=== PATIENT | female | born 1985 | race Caucasian/White ===

== ENCOUNTER → 2017-03-19 | Outpatient (CLI) | payer OTHER ==
[2017-03-19 20:58] LABS: FREE T4 0.97 NG/DL (0.76-1.46)
[2017-03-19 21:18] LABS: THYROID PEROXIDASE ANTIBODY 113.6 U/ML (<60.0)
== END ==
LOC: M LRY 15:37
PROVIDERS: ATTEND Nurse Practitioner Pediatrics
DX: E06.3 Autoimmune thyroiditis (principal); F34.1 Dysthymic disorder

== ENCOUNTER → 2017-12-31 | Outpatient (CLI) | payer OTHER ==
[2017-12-31 17:57] LABS: TOTAL 25(OH) VITAMIN D 28.8 NG/ML (30.0-100.0)
[2017-12-31 17:57] LABS: PROGESTERONE 0.4 NG/ML
[2017-12-31 17:58] LABS: LUTEINIZING HORMONE 15.8 mIU/mL; THYROGLOBULIN ANTIBODY 33.6 U/ML (<60.0); THYROID PEROXIDASE ANTIBODY 109.4 U/ML (<60.0)
[2017-12-31 17:59] LABS: FOLLICLE STIMULATING HORMONE 4.3 mIU/mL
[2017-12-31 18:03] LABS: FREE T3 2.1 PG/ML (2.2-4.0); FREE T4 0.79 NG/DL (0.76-1.46)
== END ==
LOC: M WUC 12:49
DX: E06.3 Autoimmune thyroiditis (principal); F34.1 Dysthymic disorder

== ENCOUNTER → 2018-04-06 | Outpatient (CLI) | payer OTHER ==
[2018-04-06 18:33] LABS: FREE T4 1.27 NG/DL (0.76-1.46)
[2018-04-06 18:33] LABS: FREE T3 2.8 PG/ML (2.2-4.0)
[2018-04-08 10:59] LABS: TOTAL 25(OH) VITAMIN D 45.6 NG/ML (30.0-100.0)
[2018-04-08 11:00] LABS: THYROGLOBULIN ANTIBODY 50.5 U/ML (<60.0); THYROID PEROXIDASE ANTIBODY 65.5 U/ML (<60.0)
[2018-04-08 11:06] LABS: LUTEINIZING HORMONE 30.1 mIU/mL
[2018-04-08 11:07] LABS: FOLLICLE STIMULATING HORMONE 5.8 mIU/mL
[2018-04-12 14:17] LABS: T3 REVERSE 33.1 ng/dL (9.2-24.1)
[2018-04-12 14:17] LABS: INSULIN LEVEL 5.8 uIU/mL (2.6-24.9); TESTOSTERONE FREE (DIRECT) 0.6 pg/mL (0.0-4.2)
== END ==
LOC: M WUC 13:02
DX: F34.1 Dysthymic disorder (principal); E06.3 Autoimmune thyroiditis
CPT/HCPCS: 83001

== ENCOUNTER → 2018-05-22 | Outpatient (CLI) | payer OTHER ==
[2018-05-22 16:51] LABS: PROLACTIN 9.7 NG/ML
[2018-05-25 00:14] LABS: TESTOSTERONE FREE (DIRECT) 0.8 pg/mL (0.0-4.2)
== END ==
LOC: M RAD 15:03
DX: N92.6 Irregular menstruation, unspecified (principal)
CPT/HCPCS: 76856

== ENCOUNTER → 2018-12-25 | Outpatient (CLI) | payer OTHER ==
[2018-12-25 20:09] LABS: BASO % 0.3 % (0.0-1.0); EOS # 0.1 10^3/uL (0.0-0.50); EOS % 0.5 % (0.0-3.0); HEMATOCRIT 40.5 % (36.0-47.0); HEMOGLOBIN 13.5 g/dl (12.0-15.5); LYMPH # 2.8 10^3/uL (1.5-4.5); LYMPH % 22.5 % (24.0-44.0); MEAN CORPUSCULAR HEMOGLOBIN 29.7 pg (27.0-33.0); MEAN CORPUSCULAR HGB CONC 33.3 g/dl (32.0-36.5); MEAN CORPUSCULAR VOLUME 89.2 fl (80.0-96.0); MONO # 0.7 10^3/uL (0.0-0.8); MONO % 5.6 % (0.0-5.0); NEUTROPHILS # 8.6 10^3/uL (1.8-7.7); NEUTROPHILS % 70.5 % (36.0-66.0); PLATELET COUNT, AUTOMATED 265 10^3/uL (150-450); RED BLOOD COUNT 4.54 10^6/uL (4.00-5.40); WHITE BLOOD COUNT 12.2 10^3/uL (4.0-10.0)
[2018-12-25 20:15] LABS: HEMATOCRIT 40.5 % (36.0-47.0)
[2018-12-25 20:17] LABS: FREE T4 0.92 NG/DL (0.76-1.46); IRON (FE) 58 UG/DL (50-170); PERCENT SATURATION 14.1 % (13.2-45.0); RHEUMATOID FACTOR QUANT < 10.0 IU/ML (<15.0); TOTAL IRON BINDING CAPACITY 411 UG/DL (250-450)
[2018-12-25 20:18] LABS: THYROGLOBULIN ANTIBODY 25.5 U/ML (<60.0); TOTAL 25(OH) VITAMIN D 28.3 NG/ML (30.0-100.0)
[2018-12-25 20:19] LABS: TOTAL T3 124.6 NG/DL (60.0-181.0); VITAMIN B12 LEVEL 644 PG/ML (247-911)
[2018-12-25 20:20] LABS: FOLATE > 24.0 NG/ML (>5.4)
== END ==
LOC: M WUC 16:12
PROVIDERS: ATTEND Nurse Practitioner Pediatrics
DX: E06.3 Autoimmune thyroiditis (principal); F34.1 Dysthymic disorder

== ENCOUNTER → 2019-01-09 | Outpatient (CLI) | payer OTHER ==
--- NOTE | 2019-01-09 17:52 | REP ---
Clinical: Bronchitis . Comparison: 05/24/2013 . Technique: PA and lateral. Findings: The mediastinum and cardiac silhouette are normal. The lung spain are clear and without acute consolidation, effusion, or pneumothorax. The skeletal structures are intact and normal. Impression: 1. No acute cardiopulmonary process. Electronically Signed by Vance Iyer MD 01/09/2019 05:43 P
== END ==
LOC: M WUC 17:32
PROVIDERS: ATTEND Physician Assistant Medical
DX: J20.9 Acute bronchitis, unspecified (principal)

== ENCOUNTER → 2019-10-06 | Outpatient (CLI) | payer OTHER ==
[2019-10-06 16:48] LABS: HEMATOCRIT 38.9 % (36.0-47.0); HEMOGLOBIN 12.7 g/dl (12.0-15.5); MEAN CORPUSCULAR HEMOGLOBIN 29.2 pg (27.0-33.0); MEAN CORPUSCULAR HGB CONC 32.6 g/dl (32.0-36.5); MEAN CORPUSCULAR VOLUME 89.4 fl (80.0-96.0); PLATELET COUNT, AUTOMATED 209 10^3/uL (150-450); RED BLOOD COUNT 4.35 10^6/uL (4.00-5.40); WHITE BLOOD COUNT 7.9 10^3/uL (4.0-10.0)
[2019-10-06 17:00] LABS: ALBUMIN 3.1 GM/DL (3.2-5.2); ALT/SGPT 31 U/L (12-78); BILIRUBIN,TOTAL 0.5 MG/DL (0.2-1.0); BLOOD UREA NITROGEN 14 MG/DL (7-18); CALCIUM LEVEL 8.8 MG/DL (8.5-10.1); CARBON DIOXIDE LEVEL 24 MEQ/L (21-32); CHLORIDE LEVEL 105 MEQ/L (98-107); CREATININE FOR GFR 0.84 MG/DL (0.55-1.30); GLOMERULAR FILTRATION RATE > 60.0 (>60); GLUCOSE, FASTING 114 MG/DL (70-100); POTASSIUM SERUM 4.1 MEQ/L (3.5-5.1); SODIUM LEVEL 137 MEQ/L (136-145)
[2019-10-06 19:45] LABS: ATYPICAL LYMPH 2 % (0-5); BASOPHILS 1 % (0-1); LYMPHOCYTES 17 % (16-44); MONOCYTES 5 % (0-5); NEUTROPHILS 74 % (28-66); PLATELET ESTIMATE NORMAL (NORMAL)
[2019-10-06 19:46] LABS: SMUDGE CELLS 1+
== END ==
LOC: M WUC 12:17
PROVIDERS: ATTEND Physician Assistant
DX: R10.30 Lower abdominal pain, unspecified (principal)

== ENCOUNTER → 2020-02-27 | Outpatient (REF) | payer OTHER ==
[2020-02-27 17:32] LABS: APPEARANCE, URINE CLEAR (CLEAR); BACTERIA, URINE AUTO NEGATIVE (NEGATIVE); BILIRUBIN, URINE AUTO NEGATIVE (NEGATIVE); BLOOD, URINE BLOOD NEGATIVE (NEGATIVE); COLOR, URINE YELLOW (YELLOW); GLUCOSE, URINE (UA) AUTO NEGATIVE (NEGATIVE); KETONE, URINE AUTO NEGATIVE (NEGATIVE); LEUKOCYTE ESTERASE, URINE AUTO NEGATIVE (NEGATIVE); MUCUS, URINE SMALL (NEGATIVE); NITRITE, URINE AUTO NEGATIVE (NEGATIVE); PROTEIN, URINE AUTO NEGATIVE (NEGATIVE); RBC, URINE AUTO 1 /HPF (0-3); SPECIFIC GRAVITY URINE AUTO 1.025 (1.002-1.035); SQUAMOUS EPITHELIAL CELL UR AU 3 /HPF (0-6); UROBILINOGEN, URINE AUTO 0.2 mg/dL (0.0-2.0); WBC, URINE AUTO 1 /HPF (0-3)
== END ==
LOC: M SMT 16:46
PROVIDERS: ATTEND Nurse Practitioner Women's Health
DX: N39.0 Urinary tract infection, site not specified (principal)

== ENCOUNTER → 2021-08-18 | Outpatient (REF) | payer OTHER | LOC: M LAB REF 15:55 | PROVIDERS: ATTEND Podiatrist | DX: M79.672 Pain in left foot (principal); S90.852A Superficial foreign body, left foot, initial encounter; W18.30XA Fall on same level, unspecified, initial encounter; Y92.009 Unspecified place in unspecified non-institutional (private) residence as the place of occurrence of the external cause ==

== ENCOUNTER → 2025-02-03 | Outpatient (CLI) | payer OTHER | LOC: M WHC 14:57 | PROVIDERS: ATTEND Nurse Practitioner Family | DX: Z12.31 Encounter for screening mammogram for malignant neoplasm of breast (principal); R92.313 Mammographic fatty tissue density, bilateral breasts ==